=== PATIENT | female | born 1945 | race Caucasian/White ===

== ENCOUNTER 2021-07-13 14:10 | Inpatient (IN) | payer BC, MEDICARE ==
[2021-07-13] MEDS ORDERED: Ondansetron PF 4 MG/2 ML Vial IVP PRN (16:38)
[2021-07-13] MEDS ORDERED: Albuterol Sulfate 2.5 mg/3 ml Neb NEB PRN (16:38)
[2021-07-13] MEDS ORDERED: Ondansetron ODT 4 MG TAB PO PRN (16:38)
[2021-07-13] MEDS ORDERED: Calcium Carbonate 500 MG ChewTAB PO PRN (16:38)
[2021-07-13] MEDS ORDERED: Benzonatate 100 MG CAP PO PRN (16:38)
[2021-07-13 17:29] LABS: #Lymphocytes 0.5 thou/uL (1.20-3.40); #Monocytes 0.2 thou/uL (0.11-0.59); #Neutrophils 6.6 thou/uL (1.40-6.50); %Basophils 0.1 % (0.0-1.0); %Eosinophils 0.1 % (0.0-10.0); %Lymphocytes 7.2 % (21.0-51.0); %Neutrophils 89.7 % (42.0-75.0); Hemoglobin 14.1 g/dL (12.0-16.0); Mean Corpuscular Hemoglobin 34.7 pg (27.0-31.0); Mean Platelet Volume 8.7 fL (7.4-10.4); Platelet Count 337 thou/uL (130-400); RBC Distribution Width 11.3 % (11.5-14.5); Red Blood Cell (RBC) Count 4.06 mill/uL (4.20-5.40); White Blood Cell (WBC) Count 7.3 thou/uL (4.8-10.8)
[2021-07-13 17:35] LABS: Hemoglobin A1c 5.6 % (4.0-6.0)
[2021-07-13 17:49] LABS: ALT (SGPT) 46 U/L (8-55); AST (SGOT) 49 U/L (5-34); Albumin 3.4 g/dL (3.4-4.8); Alkaline Phosphatase 72 U/L (40-110); Anion Gap 16 mmol/L (10-20); BUN (Urea Nitrogen) 24 mg/dL (9.8-20.1); Bilirubin, Total 0.5 mg/dL (0.2-1.2); Calc. Creatinine Clearance 0 mL/min (70-130); Calcium 10.2 mg/dL (7.8-10.44); Carbon Dioxide 25 mmol/L (23-31); Chloride 97 mmol/L (98-107); Cholesterol 215 mg/dl (< 200 Desired); Globulin 3.4 g/dL (2.4-3.5); Glucose 284 mg/dL (83-110); HDL Cholesterol 43 mg/dL (>60 Neg Risk); LDL Cholesterol, Calculated 141 mg/dL; Lipase 10 U/L (8-78); Potassium 3.7 mmol/L (3.5-5.1); Protein, Total 6.8 g/dL (5.8-8.1); Sodium 134 mmol/L (136-145); Triglycerides 156 mg/dL (Less than 150)
[2021-07-13 19:20] VITALS: BMI 23.8
[2021-07-13 20:49] LABS: Bacteria/HPF None Seen HPF (None Seen); Bilirubin Negative (Negative); Blood, Urine Negative (Negative); Clarity Clear (Clear); Glucose, Urine (Dipstick) >=1000 mg/dL (Negative); Ketone, Urine Negative (Negative); Leukocyte Negative Leu/uL (Negative); Nitrite Negative (Negative); Protein, Urine (Dipstick) Negative (Neg-Trace); RBC/HPF 0-3 HPF (0-3); Specific Gravity, Urine 1.016 (1.002-1.036); Squamous Epithelial 0-3 HPF (0-3); Urobilinogen Normal mg/dL (Less than 2); WBC/HPF 0-3 HPF (0-3); pH, Urine 6.5 (5.0-9.0)
[2021-07-14] MEDS ORDERED: Furosemide 20 MG TAB PO SCH (12:45)
[2021-07-14] MEDS ORDERED: Aspirin 81 mg Enteric Coated Tablet PO SCH (13:00)
[2021-07-14] MEDS ORDERED: Dexamethasone 1 MG TAB PO SCH (13:00)
[2021-07-14 20:19] LABS: SARS-CoV-2 PCR by NAA DETECTED (NotDetected)
[2021-07-14] MEDS: Apixaban 5 MG TAB PO SCH (20:24)
[2021-07-15] MEDS: Apixaban 5 MG TAB PO SCH (08:03)
[2021-07-15] MEDS: Acetaminophen 325 MG TAB PO PRN ×2 (08:03→12:26)
[2021-07-15] MEDS ORDERED: Aspirin 81 mg Enteric Coated Tablet PO SCH (09:00)
[2021-07-15] MEDS ORDERED: Furosemide 20 MG TAB PO SCH (09:00)
[2021-07-15] MEDS ORDERED: Dexamethasone 1 MG TAB PO SCH (09:00)
[2021-07-15 11:58] VITALS: BP 157/77; TEMP 98.7
[2021-07-16] MEDS ORDERED: FLU VACC QS2021-22(65YR UP)/PF 240 MCG/0.7 ML SYRINGE IM ONE (17:30)
== END 2021-07-15 15:06 | disposition home or self-care (01) | DRG 177 ==
LOC: 2SW 15:26 → OBSVTOIN 07-15 09:16
PROVIDERS: ADMIT Family Medicine; ATTEND Family Medicine
PROC: 3E0333Z Introduction of Anti-inflammatory into Peripheral Vein, Percutaneous Approach (ICD-10-PCS; principal; 2021-07-15)
DX: U07.1 COVID-19 (principal); J12.82 Pneumonia due to coronavirus disease 2019; I48.91 Unspecified atrial fibrillation; I10 Essential (primary) hypertension; K44.9 Diaphragmatic hernia without obstruction or gangrene; Z88.8 Allergy status to other drugs, medicaments and biological substances; Z79.82 Long term (current) use of aspirin; Z79.899 Other long term (current) drug therapy; Z85.3 Personal history of malignant neoplasm of breast; Z86.16 Personal history of COVID-19; J44.9 Chronic obstructive pulmonary disease, unspecified; Z13.220 Encounter for screening for lipoid disorders
CPT/HCPCS: 36415; 71045; 80053; 80061; 81001; 83036; 83690; 84443; 84484; 85025; 93005; 93010; 93306; 93970; G0378; J8540; U0003; U0005

== ENCOUNTER 2022-11-28 10:21 | Outpatient (CLI) | payer MEDICARE ==
[2022-11-28 12:12] LABS: #Eosinphils 0.1 10x3/uL (0.0-0.5); #Monocytes 0.3 10x3/uL (0.0-1.1); #Neutrophils 1.9 10x3/uL (1.5-8.4); %Basophils 1.2 % (0.0-2.0); %Eosinophils 2.1 % (0.0-6.0); %Lymphocytes 29.5 % (18.0-47.0); %Monocytes 9.2 % (0.0-10.0); %Neutrophils 57.7 % (40.0-75.0); Hemoglobin 15.4 g/dL (12.0-15.5); Mean Corpuscular HGB CONC 33.8 g/dL (32.0-36.0); Mean Corpuscular Hemoglobin 33.2 pg (27.0-33.0); Mean Corpuscular Volume 98.1 fl (81.6-98.3); Mean Platelet Volume 12.3 fl (7.4-10.4); Platelet Count 162 10x3/uL (150-450); RBC Distribution Width 12.9 % (11.5-14.5); Red Blood Cell (RBC) Count 4.64 10x6/uL (3.90-5.03); White Blood Cell (WBC) Count 3.4 10x3/uL (3.5-10.5)
[2022-11-28 12:47] LABS: ALT (SGPT) 13 U/L (8-55); AST (SGOT) 20 U/L (5-34); Albumin 4.3 g/dL (3.4-4.8); Alkaline Phosphatase 94 U/L (40-110); Anion Gap 15 mmol/L (10-20); BUN (Urea Nitrogen) 13 mg/dL (9.8-20.1); Bilirubin, Total 0.6 mg/dL (0.2-1.2); Calc. Creatinine Clearance 0 mL/min (70-130); Calcium 10.4 mg/dL (7.8-10.44); Carbon Dioxide 27 mmol/L (23-31); Chloride 102 mmol/L (98-107); Estimated GFR 86; Globulin 2.7 g/dL (2.4-3.5); Glucose 125 mg/dL (83-110); Potassium 4.2 mmol/L (3.5-5.1); Sodium 140 mmol/L (136-145)
== END 2022-11-28 10:22 | disposition home or self-care (01) ==
LOC: LABBT 10:21
PROVIDERS: ATTEND Surgery
DX: Z01.818 Encounter for other preprocedural examination (principal); N63.20 Unspecified lump in the left breast, unspecified quadrant
CPT/HCPCS: 80053; 85025; 93005; 93010

== ENCOUNTER 2022-11-30 06:54 | Day surgery (SDC) | payer MEDICARE ==
[2022-11-29 09:36] VITALS: BMI 23.8
[2022-11-30] MEDS ORDERED: Lidocaine 2% PF 5 ML VIAL ONE (08:38)
[2022-11-30] MEDS ORDERED: Bupivacaine/Epinephrine 0.25% 30 ML VIAL ONE (08:38)
[2022-11-30] MEDS ORDERED: Sodium Chloride 0.9% 100 ML ONE (08:47)
[2022-11-30] MEDS ORDERED: CEFAZOLIN 2 GM VIAL ONE (08:47)
[2022-11-30] MEDS ORDERED: Lidocaine 1% PF 5 ML VIAL ONE (09:05)
[2022-11-30] MEDS ORDERED: Ondansetron PF 4 MG/2 ML Vial ONE (09:05)
[2022-11-30] MEDS ORDERED: ePHEDrine Sulfate 50 MG/10 ML VIAL ONE (09:05)
[2022-11-30] MEDS ORDERED: Dexamethasone 20 MG/5 ML VIAL ONE (09:05)
[2022-11-30] MEDS ORDERED: PROPOFOL 200 MG/20 ML VIAL ONE (09:05)
[2022-11-30] MEDS ORDERED: Acetaminophen 500 MG TAB ONE (11:31)
== END 2022-11-30 12:20 | disposition home or self-care (01) ==
LOC: SDC 06:54
PROVIDERS: ATTEND Surgery
PROC: 0HBU0ZZ Excision of Left Breast, Open Approach (ICD-10-PCS; principal; 2022-11-30)
DX: C50.412 Malignant neoplasm of upper-outer quadrant of left female breast (principal); Z87.891 Personal history of nicotine dependence; Z17.0 Estrogen receptor positive status [ER+]; Z91.041 Radiographic dye allergy status
CPT/HCPCS: 88307; 88341; 88342; 88361; J1100; J2001; J2405; J2704; J3490

== ENCOUNTER 2024-01-16 12:59 | Outpatient (CLI) | payer BC | END 2024-01-16 13:00 | disposition home or self-care (01) | LOC: SCSMRI 12:59 | PROVIDERS: ATTEND Orthopaedic Surgery | DX: M51.16 Intervertebral disc disorders with radiculopathy, lumbar region (principal); M51.37 Other intervertebral disc degeneration, lumbosacral region; R60.0 Localized edema | CPT/HCPCS: 72148 ==